=== PATIENT | male | born 1960 | race American Indian/Alaskan Native ===

== ENCOUNTER 2017-05-03 10:29 | Outpatient (CLI) | payer OTHER ==
--- NOTE | 2017-05-03 12:22 | XRay Report ---
LEFT ELBOW, 2 VIEWS BILATERAL HANDS, 2 VIEWS BILATERAL KNEES, 2 VIEWS History: Gout. Findings: There is borderline bone mineralization. There is moderate posterior soft tissue swelling of the left elbow which could represent tophi. There are mild osteoarthritic changes at the left elbow. No evidence for fracture, bone lesion or bony erosions. Bilateral hands demonstrate diffuse osteoarthritic joint space narrowing. 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 No bony erosions are detected. 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 Bilateral knees demonstrate severe diffuse arthritic changes in all 3 compartments. No fracture or bone lesion. Moderate bilateral joint effusions are noted. Impression: No acute process. Degenerative changes. 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
== END 2017-05-03 10:30 | disposition home or self-care (01) ==
LOC: XRAY 10:29
PROVIDERS: ATTEND Internal Medicine
DX: M17.0 Bilateral primary osteoarthritis of knee (principal); M19.022 Primary osteoarthritis, left elbow; M19.041 Primary osteoarthritis, right hand; M19.042 Primary osteoarthritis, left hand; M19.031 Primary osteoarthritis, right wrist; M19.032 Primary osteoarthritis, left wrist